=== PATIENT | male | born 1985 | race Caucasian/White ===

== ENCOUNTER 2019-05-08 12:14 | Outpatient (CLI) | payer OTHER | END 2019-05-08 12:27 | disposition home or self-care (01) | LOC: RAD 12:14 | DX: M54.2 Cervicalgia (principal); M54.89 Other dorsalgia ==

== ENCOUNTER → 2023-05-04 | Outpatient (CLI) | payer OTHER | END | disposition home or self-care (01) | LOC: MRI 12:13 | PROVIDERS: ATTEND General Practice | DX: S59.902S Unspecified injury of left elbow, sequela (principal); M25.522 Pain in left elbow; M25.511 Pain in right shoulder; S49.91XS Unspecified injury of right shoulder and upper arm, sequela; S52.515S Nondisplaced fracture of left radial styloid process, sequela | CPT/HCPCS: 73221 ==

== ENCOUNTER 2023-05-05 11:20 | Outpatient (CLI) | payer OTHER | END 2023-05-05 11:30 | disposition home or self-care (01) | LOC: SONOGRAMA 11:20 | PROVIDERS: ATTEND General Practice | DX: M25.522 Pain in left elbow (principal); S59.902S Unspecified injury of left elbow, sequela; M25.511 Pain in right shoulder; S49.91XS Unspecified injury of right shoulder and upper arm, sequela; S52.515S Nondisplaced fracture of left radial styloid process, sequela ==

== ENCOUNTER 2025-01-12 19:25 | Inpatient (IN) | payer OTHER ==
[~2025-01-12] VITALS: Ht 172.7 cm; Wt 72.6 kg
--- NOTE | 2025-01-12 19:36 | NUR ---
SE RECIBE PACIENTE ALERTA Y ORIENTADO X3 EL CUAL VIENE EN COMPANIA DE PARAMEDICOS DE AMBULANCIA Y FAMILIARES QUIENES REFIEREN QUE PACIENTE TUVO UN EPISODIO DE MOVIMIENTOS INVOLUNTARIOS Y PRESENTANDO SECRECIONES BUCALES. AL MOMENTO PACIENTE REFIERE NO RECORDARSE DE LO SUCEDIDO. SE REALIZA EKG Y SE CONECTA A MONITOR.
[2025-01-12] MEDS ORDERED: 0.9 % SODIUM CHLORIDE 1,000 ML IV SCH (19:45)
[2025-01-12] MEDS ORDERED: LORazepam 2 MG/ML VIAL IV ONE ×2 (20:15→20:45)
[2025-01-12] MEDS ORDERED: LORazepam 2 MG/ML VIAL ONE (20:35)
[2025-01-12 20:57] LABS: BASO % 0.3 % (0.1-1.2); EOS # 0.01 (0.04-0.54); HEMATOCRIT 44.7 % (40.1-51.0); LYMPH # 0.38 (1.18-3.74); LYMPH % 1.8 % (19.3-53.1); MEAN CORPUSCULAR HEMOGLOBIN 32.7 pg (25.6-32.2); MONO # 0.84 (0.24-0.82); MONO % 3.9 % (4.7-12.5); NEUT # 19.87 (1.56-6.13); NEUT % 92.8 % (34.0-71.1); PLATELET COUNT 160 K/uL (163-369); RED CELL DISTRIBUTION WIDTH 12.1 % (11.6-14.4)
--- NOTE | 2025-01-12 21:01 | NUR ---
SE EDUCA A PACIENTE SOBRE TRATAMIENTO MEDICO EL CUAL REFIERE ENTENDER, SE REALIZA IZABELA DE MUESTRAS BAJO MEDIDAS ASPETICAS Y SE ADMINISTRA MEDICAMENTO DIONISIO ORDEN MEDICA.
[2025-01-12 21:26] LABS: BILIRUBIN TOTAL 1.15 mg/dL (0.3-1.2); BILIRUBIN,CONJUGATED 0.31 mg/dL (0.0-0.2); BILIRUBIN,UNCONJUGATED 0.84 mg/dL (0.0-0.6); CALCIUM 9.3 mg/dL (8.5-10.1); CREATININE SERUM 1.1 mg/dL (0.70-1.30); GFR 74.14; MAGNESIUM 1.9 mg/dL (1.8-2.4)
[2025-01-12 21:35] LABS: PHOSPHOROUS 0.5 mg/dL (2.5-4.9); POTASSIUM 2.93 mEq/L (3.5-5.1)
[2025-01-12] MEDS ORDERED: POTASSIUM PHOS,M-BASIC-D-BASIC 15 MM in 0.9 % SODIUM CHLORIDE 250 ML IV ONE (21:45)
[2025-01-12 21:47] LABS: CKMB 1.3 NG/ML (0.5-3.6)
[2025-01-12 22:03] LABS: PH,URINE 6.5 (5.0-8.0); URINE APPEARANCE Turbid; URINE BILIRRUBIN Small (NEGATIVE); URINE BLOOD Trace; URINE COLOR Dark Yellow; URINE LEUKOCYTE Trace; URINE NITRATE Negative
[2025-01-12 22:07] LABS: URINE BACTERIA 148.1 uL (0.0-1933); URINE CAST 5.15 uL (0.0-1.40); URINE EPITHELIAL CELLS 15.3 uL (0.0-38.8); URINE RBC 20.9 uL (0.0-20.8); URINE WBC 36.5 uL (0.0-23.2)
[2025-01-12 22:17] LABS: URINE CRYSTALS MODERATE /HPF; URINE GLUCOSE 250 MG/DL (NEGATIVE); URINE KETONE >=160 (NEGATIVE); URINE MUCUS MODERATE; URINE PROTEIN 100 (NEGATIVE)
[2025-01-12 22:28] LABS: COCAINE NEGATIVE (NEGATIVE); METHADONE NEGATIVE (NEGATIVE); OPIATES NEGATIVE (NEGATIVE); THC ( Cannabinoids) NEGATIVE (NEGATIVE)
[2025-01-13] MEDS ORDERED: KETOROLAC TROMETHAMINE 30 MG VIAL IV STA (02:59)
[2025-01-13] MEDS ORDERED: ORPHENADRINE CITRATE 30 MG/ML AMPUL IV STA (02:59)
[2025-01-13] MEDS ORDERED: ORPHENADRINE CITRATE 30 MG/ML AMPUL ONE ×2 (03:12→14:20)
[2025-01-13] MEDS ORDERED: KETOROLAC TROMETHAMINE 30 MG VIAL ONE ×2 (03:12→14:19)
[2025-01-13 06:14] LABS: BASO % 0.2 % (0.1-1.2); EOS # 0.03 (0.04-0.54); EOS % 0.2 % (0.7-7.0); HEMATOCRIT 40.9 % (40.1-51.0); HEMOGLOBIN 14.7 g/dL (13.7-17.5); LYMPH # 0.69 (1.18-3.74); LYMPH % 5.5 % (19.3-53.1); MONO # 0.85 (0.24-0.82); MONO % 6.7 % (4.7-12.5); NEUT # 10.94 (1.56-6.13); NEUT % 86.7 % (34.0-71.1); PLATELET COUNT 127 K/uL (163-369); RED BLOOD COUNT 4.45 M/uL (4.63-6.08); RED CELL DISTRIBUTION WIDTH 12.2 % (11.6-14.4)
[2025-01-13 07:06] LABS: ALBUMIN 3.5 gm/dL (3.4-5.0); BILIRUBIN TOTAL 1.13 mg/dL (0.3-1.2); CALCIUM 8.2 mg/dL (8.5-10.1); CREATININE SERUM 0.96 mg/dL (0.70-1.30); GFR 86.75; GLOBULINA 2.9 G/DL (2.4-3.5); PHOSPHOROUS 4.3 mg/dL (2.5-4.9); POTASSIUM 3.42 mEq/L (3.5-5.1); TOTAL PROTEIN 6.4 gm/dL (6.4-8.2)
[2025-01-13] MEDS ORDERED: ORPHENADRINE CITRATE 30 MG/ML AMPUL IM ONE (14:15)
[2025-01-13] MEDS ORDERED: KETOROLAC TROMETHAMINE 30 MG VIAL IM ONE (14:15)
[2025-01-13] MEDS ORDERED: LevETIRAcetam 500 MG/5 ML VIAL IV SCH (18:05)
[2025-01-13] MEDS ORDERED: 0.9 % SODIUM CHLORIDE 1,000 ML IV SCH (18:15)
[2025-01-13] MEDS ORDERED: POTASSIUM CHLORIDE IN WATER 100 ML IV NR (18:15)
[2025-01-13] MEDS ORDERED: ONDANSETRON HCL 4 MG in 0.9 % SODIUM CHLORIDE 50 ML IV PRN (18:15)
[2025-01-13] MEDS ORDERED: ACETAMINOPHEN 500 MG GEL..CAP PO PRN (18:15)
[2025-01-13] MEDS ORDERED: THIAMINE HCL 100 MG/ML 2 ML VIAL IV ONE (18:30)
[2025-01-13 22:09] LABS: D DIMER 1.64 MG/L; PARTIAL THROMBOPLASTIN TIME 27.7 SECONDS (22.0-34.0)
[2025-01-13 22:14] LABS: MAGNESIUM 2.2 mg/dL (1.8-2.4); PHOSPHOROUS 2.1 mg/dL (2.5-4.9)
[2025-01-13 22:24] LABS: INR 0.99; PROTHROMBIN TIME 10.8 SECONDS (9.0-11.5)
[2025-01-13 22:29] VITALS: BP 134/82
[2025-01-14 02:24] VITALS: BP 147/85; O2SAT 96
[2025-01-14 08:10] VITALS: BP 146/90
[2025-01-14] MEDS ORDERED: ENOXAPARIN SODIUM 40 MG/0.4 ML SYRINGE SUBCUTANEO SCH (09:00)
[2025-01-14] MEDS ORDERED: PANTOPRAZOLE SODIUM 40 MG/VIAL VIAL IV SCH (09:00)
[2025-01-14 17:05] VITALS: BP 147/88
[2025-01-15 01:32] VITALS: BP 147/94; O2SAT 97
[2025-01-15 08:18] VITALS: BP 137/75; O2SAT 96
== END 2025-01-15 12:22 | disposition home or self-care (01) | DRG 101 ==
LOC: ER 19:25 → MEDJ 01-13 18:21
PROVIDERS: Emergency Medicine; General Practice; ADMIT Psychiatry & Neurology Clinical Neurophysiology; ATTEND Psychiatry & Neurology Clinical Neurophysiology
PROC: BW28ZZZ Computerized Tomography (CT Scan) of Head (ICD-10-PCS; principal; 2025-01-12)
PROC: BW38ZZZ Magnetic Resonance Imaging (MRI) of Head (ICD-10-PCS; 2025-01-13)
DX: G40.89 Other seizures (principal); E87.6 Hypokalemia; E86.0 Dehydration; E87.8 Other disorders of electrolyte and fluid balance, not elsewhere classified
CPT/HCPCS: 70544